=== PATIENT | female | born 1945 | race Caucasian/White ===

== ENCOUNTER → 2016-07-01 | Outpatient (CLI) | payer OTHER | LOC: BMCIMAGING 14:45 | DX: Z12.31 Encounter for screening mammogram for malignant neoplasm of breast (principal); M81.0 Age-related osteoporosis without current pathological fracture | CPT/HCPCS: G0202 ==

== ENCOUNTER → 2017-07-03 | Outpatient (CLI) | payer OTHER | LOC: BMCIMAGING 13:19 | PROVIDERS: ATTEND Internal Medicine | DX: Z12.31 Encounter for screening mammogram for malignant neoplasm of breast (principal) ==

== ENCOUNTER 2018-01-27 09:25 | Emergency (ER) | payer OTHER ==
[2018-01-27] MEDS ORDERED: OXYMETAZOLINE 30 ML NASAL SPRAY EACHNARE ONE (09:47)
[2018-01-27] MEDS ORDERED: SILVER NITRATE APPLICATOR 1 APPL TP ONE (10:00)
[2018-01-27] MEDS ORDERED: TRANEXAMIC ACID 1,000 MG/10 ML VIAL TP ONE (10:02)
--- NOTE | 2018-01-27 10:19 | EDPHY ---
General Time Seen by Provider: 01/27/18 09:52 Narrative: CHIEF COMPLAINT: Nose bleed HISTORY OF PRESENT ILLNESS: Patient presents provide vehicle with complaints of nosebleed nosebleed started approximately 4:30 a.m.. This has been ongoing for 3 weeks. It is always on the left side. Initially she was seen 3 weeks ago with cautery and packing placed in the ENT office. She did well for 2 weeks until yesterday. At that time she developed intermittent nosebleed from the left side. She was able to stop this with Afrin and pressure. However at 4:30 a.m. The bleeding started again. She tried Afrin and pressure and has not stopped since time arrival. She could feel the bleeding down her throat. She has no chest pain or shortness of breath. No lightheadedness or dizziness. No bleeding from any other site. No anticoagulants. No other associated complaints or modifying factors. Tetanus up-to-date. REVIEW OF SYSTEMS: 10 systems were reviewed and negative with the exception of the elements mentioned in the history of present illness. PCP: Dr. Lizbeth Mcgraw SPECIALISTS: KUMAR Gonzalez PA PAST MEDICAL HISTORY: Hypothyroid, dyslipidemia, nosebleeds, hypertension PAST SURGICAL HISTORY: No recent surgical history. Recent cauterization of the left naris SOCIAL HISTORY: Nonsmoker. Lives independently with her spouse. FAMILY HISTORY: Noncontributory EXAMINATION: General Appearance: Alert, no distress. Conversing in full sentences without difficulty. Well-appearing. Head: normocephalic, atraumatic Eyes: Pupils equal and round, no conjunctival pallor or injection ENT, Mouth: Mucous membranes moist. There is dried blood in both nostrils. There is dried blood the posterior pharynx without any active bleeding. Airway is widely patent. No drooling. Cardiovascular: Regular rate with good signs of perfusion. Neurological: A&O, nonfocal, normal gait Skin: Warm and dry, no rash. No petechiae. No purpura Extremities: Nontender, no pedal edema DIFFERENTIAL DIAGNOSES: Including but not limited to anterior epistaxis, posterior epistaxis, acute blood-loss anemia MDM: 9:55 a.m. Acute left anterior epistaxis that has stopped bleeding prior to my examination. No evidence of posterior bleed. Vital signs are within normal limits. No anticoagulation. Patient is asking for cautery but I cannot find the bleeding source this time to cauterize. She is just requesting packing. I will do this with topical TXA. She has consented verbally. 10:20 a.m. I have inserted a 5.5 cm rhino rocket to the left nostril with topical TXA applied. We discussed leaving this in place until she can be seen by her Ear Nose and Throat physician on Monday or Monday. We discussed Keflex prophylaxis which I provided a prescription for. We discussed ED precautions for return of bleeding, bleeding in the throat, bleeding from any other site or if the rhino rocket become dislodged. She is comfortable this plan. She is discharged home stable condition. PROCEDURE: Epistaxis management Indication: Anterior epistaxis Location: Left nostril Consent: verbal Description: After time-out verbal consent, the left nostril was prepped with topical xylocaine with epinephrine, 0.25% 5 mL. I then inserted a 5.5 cm rhino rocket that was cut Follow-up: ENT in 2-3 days SUPERVISION: This patient was independently evaluated without direct involvement of or examination by the attending physician. CONSULTATION: None - History History Review: I reviewed the patient's medical records, I obtained additional history from the patient's family Smoking Status: Never smoked - Objective Vital Signs: Initial Vital Signs Temperature (C) 97.9 F 01/27/18 09:28 Heart Rate 69 01/27/18 09:28 Respiratory Rate 17 01/27/18 09:28 Blood Pressure 162/127 H 01/27/18 09:28 O2 Sat (%) 99 01/27/18 09:28 O2 Delivery Mode Room Air Allergies/Adverse Reactions: sulfamethoxazole [From Septra] Allergy (Verified 01/27/18 09:26) trimethoprim [From Septra] Allergy (Verified 01/27/18 09:26) Home Medications: Medication Instructions Recorded Crestor 12/06/10 SYNTHROID 12/06/10 Cephalexin [Keflex (*)] 500 mg PO TID #21 cap 01/27/18 Medications Given: Discontinued Medications Oxymetazoline HCl (Afrin Nasal [place]) 2 sprays EACHNARE EDNOW ONE Stop: 01/27/18 09:48 Last Admin: 01/27/18 10:22 Dose: 1 spr Tranexamic Acid (Cyklokapron) 500 mg TP EDNOW ONE Stop: 01/27/18 10:03 Last Admin: 01/27/18 10:21 Dose: 500 mg Departure - Departure Disposition: Home, Routine, Self-Care Clinical Impression: Acute anterior epistaxis, Epistaxis, recurrent Condition: Good Instructions: Nosebleed (ED) Additional Instructions: 1. Do not manipulate the nose or packing 2. Keflex as prescribed for prophylaxis 3. Cool humidified air recommended at all times 4. Contact your established ENT physician on Monday for definitive care 5. ED precautions for return of bleeding, bleeding in the posterior pharynx, chest pain, shortness of breath, lightheaded or dizziness Referrals: Lizbeth Mcgraw MD [Primary Care Provider] - As per Instructions Abhay Bauer MD [Medical Doctor] - As per Instructions Tomeka Parker PAC [Physician [facility] Supervisor] - As per Instructions Prescriptions: Cephalexin [Keflex (*)] 500 mg PO TID #21 cap
[2018-01-27 10:34] VITALS: BP 144/102
== END 2018-01-27 10:32 | disposition home or self-care (01) ==
PROC: 2Y41X5Z Packing of Nasal Region using Packing Material (ICD-10-PCS; principal; 2018-01-27)
DX: R04.0 Epistaxis (principal); E03.9 Hypothyroidism, unspecified; E78.5 Hyperlipidemia, unspecified; I10 Essential (primary) hypertension

== ENCOUNTER → 2018-07-10 | Outpatient (CLI) | payer OTHER | LOC: BMCIMAGING 14:46 | PROVIDERS: ATTEND Internal Medicine | DX: Z12.31 Encounter for screening mammogram for malignant neoplasm of breast (principal) ==